=== PATIENT | male | born 1960 ===

== ENCOUNTER → 2025-01-26 | Outpatient (CLI) | payer OTHER | LOC: LAB 14:11 → LAB SHORT 14:11 | DX: E11.621 Type 2 diabetes mellitus with foot ulcer (principal); M85.9 Disorder of bone density and structure, unspecified | CPT/HCPCS: 87071; 87075; 87077; 87186; 87205 ==

== ENCOUNTER → 2025-01-26 | Outpatient (CLI) | payer OTHER | END | disposition home or self-care (01) | LOC: LAB 07:47 → LAB SHORT 07:47 | DX: E11.621 Type 2 diabetes mellitus with foot ulcer (principal); M86.9 Osteomyelitis, unspecified | CPT/HCPCS: 88304 ==

== ENCOUNTER → 2025-03-03 | Outpatient (CLI) | payer OTHER | LOC: LAB SHORT 13:45 → LAB 13:45 | DX: E11.65 Type 2 diabetes mellitus with hyperglycemia (principal) | CPT/HCPCS: 82043 ==

== ENCOUNTER 2025-03-16 02:39 | Day surgery (SDC) | payer OTHER | END 2025-03-16 23:00 | disposition home or self-care (01) | LOC: WOUND 02:39 | DX: E11.621 Type 2 diabetes mellitus with foot ulcer (principal); T25.221D Burn of second degree of right foot, subsequent encounter; E11.69 Type 2 diabetes mellitus with other specified complication; M86.9 Osteomyelitis, unspecified; L03.115 Cellulitis of right lower limb; E11.51 Type 2 diabetes mellitus with diabetic peripheral angiopathy without gangrene; I25.2 Old myocardial infarction; Z88.0 Allergy status to penicillin | CPT/HCPCS: G0463 ==

== ENCOUNTER 2025-04-02 06:42 | Day surgery (SDC) | payer OTHER ==
[~2025-04-02] VITALS: Ht 175.3 cm; Wt 79.5 kg
[2025-04-02] VITALS (7 sets, daily range): BP systolic 151–165; BP diastolic 82–99
[~2025-04-02 06:42] MED LIST: ATOR80; Aspir 8181 MG; Aspir 8181 MG PO; Calcium Carbon500 MG PO; FLONASE ALLERG9.9 M2; Flomax0.4 MG PO; LOPE2C PO; LOSA25 PO; METFORMIN ER G500 MG PO
[2025-04-02] MEDS ORDERED: NS 1,000 ML IV ONE ×2 (07:32→08:39)
[2025-04-02] MEDS ORDERED: Heparin Sodium 1000 Units/ML 10ML MDV ONE (07:32)
[2025-04-02] MEDS ORDERED: Nitroglycerin 2 MG/20 ML BTL ONE (07:32)
[2025-04-02] MEDS ORDERED: NS 500 ML IV ONE (07:32)
[2025-04-02] MEDS ORDERED: FentaNYL Citrate 50 MCG/ML 2 ML Injection ONE (08:55)
[2025-04-02] MEDS ORDERED: Midazolam HCl 1MG / ML 2ML Vial ONE (08:55)
[2025-04-02] MEDS ORDERED: CLOP75 PO (10:55)
--- NOTE | 2025-04-02 11:30 | NUR ---
PT AMB TO THE BATHROOM /C SBA. TOLERATED WELL. NEG BLEEDING OR SWELLING R GROIN AREA.
--- NOTE | 2025-04-02 11:35 | NUR ---
groin site soft and non-tender per pt. no bleeding/hematoma noted. pt sat to 30 degrees. pt given new warm blanket.
--- NOTE | 2025-04-02 11:41 | NUR ---
groin site soft and non-tender per pt. no bleeding/heamtoma noted.
--- NOTE | 2025-04-02 12:15 | NUR ---
PT VERBALIZED UNDERSTANDING OF WRITTEN AND VERBAL D/C INST. R GROIN SOFT, NONTENDER. IV REMOVED. PT TAKEN OUT OF THE HRT CENTER VIA W/C.
== END 2025-04-02 12:15 | disposition home or self-care (01) ==
LOC: MHTC 06:42
DX: E11.51 Type 2 diabetes mellitus with diabetic peripheral angiopathy without gangrene (principal); I70.221 Atherosclerosis of native arteries of extremities with rest pain, right leg; L97.519 Non-pressure chronic ulcer of other part of right foot with unspecified severity; K21.9 Gastro-esophageal reflux disease without esophagitis; E78.5 Hyperlipidemia, unspecified; I25.2 Old myocardial infarction; Z79.82 Long term (current) use of aspirin; Z79.84 Long term (current) use of oral hypoglycemic drugs; Z79.899 Other long term (current) drug therapy; Z88.0 Allergy status to penicillin; Z91.010 Allergy to peanuts; Z91.018 Allergy to other foods
CPT/HCPCS: 76937; 99152; 99153; C1725; C1760; C1769; C1887; C1894; C2623; J1644; J2250; J3010; J7030; J7050; Q9967

== ENCOUNTER 2025-06-23 09:22 | Inpatient (IN) | payer OTHER ==
[2025-06-23] VITALS (26 sets, daily range): BP systolic 79–115; BP diastolic 44–89
[~2025-06-23] VITALS: Ht 175.3 cm; Wt 98.7 kg
[~2025-06-23 09:22] MED LIST changes: +CLOP75 PO
[2025-06-23] MEDS ORDERED: NS 500 ML IV SCH (09:35)
[2025-06-23] MEDS ORDERED: Ketorolac Tromethamine 30mg Vial IV ONE (09:40)
[2025-06-23 09:50] LABS: Hematocrit 26.4 % (37.0-53.0); Hemoglobin 8.8 g/dL (13.5-17.5); Mean Corpuscular HGB Conc 33.3 g/dL (31.5-36.5); Mean Corpuscular Volume 89 fL (80-100); NRBC ABSOLUTE 0.00 K/mm3 (0.00-0.02); NRBC Auto 0.0 /100 WBC (0.0-0.2); Platelet Count 322 K/mm3 (150-400); RDW Coefficient Variation 13.8 % (11.7-14.2); RDW Standard Deviation 45.4 fL (35.1-46.3)
[2025-06-23 10:11] LABS: Alanine Aminotransfer (ALT/SGP 33 U/L (12-78); Albumin, Blood 3.0 g/dL (3.4-5.0); Albumin/Globulin Ratio 0.7 (0.8-1.8); Anion Gap 16 mmol/L (3-11); Aspartate Aminotrans (AST/SGOT 19 U/L (12-37); Bilirubin, Total 0.5 mg/dL (0.1-1.0); Blood Urea Nitrogen 46 mg/dL (8-24); C-REACTIVE PROTEIN, EXT RANGE >19.000 mg/dL (0.000-0.300); CO2, Blood 21 mmol/L (21-32); Calcium, Blood 8.6 mg/dL (8.5-10.1); Chloride, Blood 97 mmol/L (98-108); Creatinine, Blood 2.39 mg/dL (0.60-1.20); Globulin, Blood 4.3 g/dL (2.2-4.0); Glucose, Blood 301 mg/dL (70-99); Magnesium, Blood 1.5 mg/dL (1.6-2.4); Potassium, Blood 4.2 mmol/L (3.5-5.5); Sodium, Blood 130 mmol/L (136-145); Total Protein, Blood 7.3 g/dL (6.4-8.2)
[2025-06-23 10:17] LABS: BAND PERCENT MAN 12 % (0-8); BASOPHILS ABSOLUTE MAN 0.00 K/mm3 (0.00-0.23); BASOPHILS PERCENT MAN 0 % (0-2); EOSINOPHILS ABSOLUTE MAN 0.00 K/mm3 (0.00-0.68); EOSINOPHILS PERCENT MAN 0 % (0-6); LYMPHOCYTES ABSOLUTE MAN 0.39 K/mm3 (0.84-5.20); LYMPHOCYTES PERCENT MAN 3 % (21-46); METAMYELOCYTE ABSOLUTE MAN 0.26 K/mm3 (0.00-0.00); METAMYELOCYTE PERCENT MAN 2 % (0-0); MONOCYTES ABSOLUTE MAN 0.65 K/mm3 (0.16-1.47); MONOCYTES PERCENT MAN 5 % (4-13); NEUTROPHILS ABSOLUTE MAN 11.70 K/mm3 (1.96-9.15); SEG NEUTROPHILS PERCENT MAN 78 % (41-73)
[2025-06-23] MEDS ORDERED: CefTRIAXone Sodium 1,000 MG in NS 50 ML IV ONE ×2 (10:30→11:25)
[2025-06-23] MEDS ORDERED: NS 1,000 ML IV SCH ×2 (10:35→12:00)
[2025-06-23] MEDS ORDERED: Magnesium Sulf 2 GM/Water 50ML 50 ML IV ONE (10:55)
[2025-06-23] MEDS ORDERED: FLU VACC TS2025-26(6MOS UP)/PF 45 MCG/0.5 ML SYRINGE IM SCH (11:55)
[2025-06-23 12:25] LABS: Influenza A, PCR NEGATIVE (NEGATIVE); Influenza B, PCR NEGATIVE (NEGATIVE); Resp Syncytial Virus, PCR NEGATIVE (NEGATIVE); SARS-Cov-2 (COVID-19) PCR, MMC NEGATIVE (NEGATIVE)
[2025-06-23] MEDS ORDERED: PROBIOTIC1 EA13 PO (13:36)
[2025-06-23 13:40] LABS: Hematocrit 27.0 % (37.0-53.0); Hemoglobin 8.9 g/dL (13.5-17.5)
[2025-06-23] MEDS ORDERED: Vancomycin (Pharmacy Consult) IV PRN (13:55)
[2025-06-23] MEDS ORDERED: Heparin Sodium,Porcine 5,000 UNIT/0.5 ML SDV SC SCH (14:00)
[2025-06-23] MEDS ORDERED: Cefepime HCl 2,000 MG in NS 100 ML IV SCH (14:00)
[2025-06-23] MEDS ORDERED: Fluticasone 0.05% Nasal Spray PRN (14:30)
--- NOTE | 2025-06-23 15:43 | NUR ---
ASSUMED CARE OF PT FROM ER PATIENT ARRIVED TO ICU ON RLAREDO. PATIENT ALERT BUT DROWSY. PATIENT HAD SMALL DARK BROWN STOOL IN ATTENDS, CLEANED UP. PATIENT HAD LEVOPHED TO LEFT AC IV AND NS TO RIGHT AC IV. PATIENT HAS SCATTERED BRUISING TO RIGHT LEG, LEFT KNEE AND FOOT, RIGHT FA AND RIGHT WRIST. PT HAS SMALL OLD PRESSURE INJURY NON BLANCHABLE TO RIGHT HEEL. NEW MEPILEX PLACED ON IT. AND PICTURES DONE TO ALL OF SPOT. DR AMARAL WAS INFORMED IF THE SORES AND BRUSING AND SWOLLEN LE ON LEFT SIDE. DID DOPPLER TO BILAT LE AND HAVE GOOD DOPPLER PULSES TO BOTH LE POST TIBIAL AND DORSAL PEDIS. PATIENT IS ABLE TO INTERACT TO DO ASSESSMENT HOWEVER IS VERY DROWSY. ORDERD A PICC LINE. SOLAR PHOTOVOLTAIC INSTALLER'S TO ROOM TO DO LINE PLACEMENT. PT IS AFEBRILE. PATIENT VS BEING MONITORED AND TREATED TO ORDERS. ANTIBIOTICS GIVEN ORDERED. NO VOID OF YET.
[2025-06-23 15:46] LABS: Anion Gap 17.0 mmol/L (3-11); Blood Urea Nitrogen 45.0 mg/dL (8-24); CO2, Blood 15.0 mmol/L (21-32); Calcium, Blood 8.0 mg/dL (8.5-10.1); Chloride, Blood 104.0 mmol/L (98-108); Creatinine, Blood 2.53 mg/dL (0.60-1.20); Glucose, Blood 305.0 mg/dL (70-99); Potassium, Blood 4.6 mmol/L (3.5-5.5); Sodium, Blood 131.0 mmol/L (136-145); Thyroid Stimulating Hormone 1.23 uIU/mL (0.360-4.800)
[2025-06-23] MEDS ORDERED: NS 1,000 ML IV ONE (17:00)
[2025-06-23] MEDS ORDERED: Insulin Regular 100 UNIT/ML 10ML Vial SC SCH (18:00)
--- NOTE | 2025-06-23 18:09 | NUR ---
update updated dr mistry on patient condition. He remains on levophed at 5mcg going into picc line that was placed earlier. He has had 4 soft stools and a sample was sent to lab to check for C-diff. He is getting oral vanco now however with the sip of water after the med swallowed he started choking. Keeping him NPO. Patient has purwick placed on him, he has not voided yet, staff did bladder scan and it showed only 352 ml vol. in bladder. Dr. Mistry informed of lack of urine output. Patient was seen by Dr Ring. He stated there is a small plearal effusion. He orders a bolus of NS. Patient has currently had 4l of fluid. He is being switched to LR at 125 now.
[2025-06-23] MEDS ORDERED: Sodium Bicarb 8.4% 50 mEq Syringe IV ONE (18:31)
[2025-06-23] MEDS ORDERED: Insulin Glargine-Yfgn 100 Unit/mL 3 ML SYR SC SCH (19:00)
--- NOTE | 2025-06-23 19:18 | NUR ---
rEPORT GIVEN TO ON COMING SHIFT pATIENT HAD ANOTHER BOWEL MOVEMENT, LOOSE MUSHY BROWN. UNCONTROLLABLE. HE HELPED TURN SIDE TO SIDE. HE THINKS ITS SLOWING DOWN. LEVOPHED DOWN TO 4MCG LR AT 125/HR
[2025-06-24] VITALS (57 sets, daily range): BP systolic 86–132; BP diastolic 55–89
[2025-06-24 01:20] LABS: Campylobacter Sp Not Detected (NOT DETECT); E. Coli O157 Not Detected (NOT DETECT); Enteroaggregative E. coli-EAEC Not Detected (NOT DETECT); Enteropathogenic E. coli-EPEC Not Detected (NOT DETECT); Enterotoxigenic E. coli-ETEC Not Detected (NOT DETECT); Salmonella Sp Not Detected (NOT DETECT); Shiga Toxin-prod E. coli-STEC Not Detected (NOT DETECT); Shigella/Enteroin E. coli-EIEC Not Detected (NOT DETECT); Vibrio Sp Not Detected (NOT DETECT)
[2025-06-24 04:20] LABS: Hematocrit 27.8 % (37.0-53.0); Hemoglobin 9.4 g/dL (13.5-17.5); Mean Corpuscular HGB Conc 33.8 g/dL (31.5-36.5); Mean Corpuscular Volume 87 fL (80-100); NRBC ABSOLUTE 0.03 K/mm3 (0.00-0.02); NRBC Auto 0.2 /100 WBC (0.0-0.2); Platelet Count 357 K/mm3 (150-400); RDW Coefficient Variation 14.1 % (11.7-14.2); RDW Standard Deviation 45.6 fL (35.1-46.3)
[2025-06-24 04:53] LABS: BAND PERCENT MAN 21 % (0-8); BASOPHILS ABSOLUTE MAN 0.00 K/mm3 (0.00-0.23); BASOPHILS PERCENT MAN 0 % (0-2); EOSINOPHILS ABSOLUTE MAN 0.00 K/mm3 (0.00-0.68); EOSINOPHILS PERCENT MAN 0 % (0-6); LYMPHOCYTES ABSOLUTE MAN 0.97 K/mm3 (0.84-5.20); LYMPHOCYTES PERCENT MAN 6 % (21-46); MONOCYTES ABSOLUTE MAN 0.32 K/mm3 (0.16-1.47); MONOCYTES PERCENT MAN 2 % (4-13); MYELOCYTE ABSOLUTE MAN 0.16 K/mm3 (0.00-0.00); MYELOCYTE PERCENT MAN 1 % (0-0); NEUTROPHILS ABSOLUTE MAN 14.73 K/mm3 (1.96-9.15); SEG NEUTROPHILS PERCENT MAN 70 % (41-73)
[2025-06-24 05:14] LABS: Alanine Aminotransfer (ALT/SGP 2427 U/L (12-78); Albumin, Blood 2.0 g/dL (3.4-5.0); Albumin/Globulin Ratio 0.5 (0.8-1.8); Anion Gap 15 mmol/L (3-11); Aspartate Aminotrans (AST/SGOT 3525 U/L (12-37); Bilirubin, Total 0.5 mg/dL (0.1-1.0); Blood Urea Nitrogen 66 mg/dL (8-24); CO2, Blood 17 mmol/L (21-32); Calcium, Blood 7.6 mg/dL (8.5-10.1); Chloride, Blood 105 mmol/L (98-108); Creatinine, Blood 3.28 mg/dL (0.60-1.20); Globulin, Blood 4.2 g/dL (2.2-4.0); Glucose, Blood 220 mg/dL (70-99); Potassium, Blood 4.1 mmol/L (3.5-5.5); Sodium, Blood 133 mmol/L (136-145); Total Protein, Blood 6.2 g/dL (6.4-8.2); Vancomycin, Random 23.6 ug/mL
--- NOTE | 2025-06-24 05:56 | NUR ---
SHIFT SUMMARY PATIENT SLEPT OFF AND ON THROUGH SHIFT. PLACED A RECTAL TUBE AFTER 3X INCOT OF BM IN ATTENDS. PATIENT HANDLE INSERTION WELL AND WAS THANKFUL. PATIENT ASK FOR SOMETHING TO DRINK, NURSE GAVE WATER AND PATIENT DID NOT CHOKE WITH MEDS. PATIENT AFERIBLE AND A&O X4. HR IN THE 110'S AND SBP 110-120'S WITH MAP OF 60-80'S. PATIENT ON ROOMAIR SATTING ABOVE 95%. PATIENT HAS PUREWICK. PATIENT HAS PICC IN RIGHT UPPER ARM WITH LEVO RUNNING @4 AND LR INFUSING @125MLS. PATIENT HAS MULTIPLE WONDS THROUGH OUT BODY PICS IN CHART. PATIENT ASKS FOR WHEEL CHAIR SO HE COULD GO GET SOMETHING TO DRINK. NURSE REMINDS HIM THAT HE IS NPO AND NURSE WILL TALK TO DAYSHIFT TO SEE IF SWALLOW EVAL CAN BE DONE TO CHANGE NPO. CALL LIGHT WITHIN REACH
[2025-06-24] MEDS ORDERED: CefTRIAXone Sodium 1,000 MG in NS 100 ML IV SCH (09:00)
[2025-06-24 14:51] LABS: Anion Gap 13.0 mmol/L (3-11); Blood Urea Nitrogen 71.0 mg/dL (8-24); CO2, Blood 18.0 mmol/L (21-32); Calcium, Blood 7.4 mg/dL (8.5-10.1); Chloride, Blood 102.0 mmol/L (98-108); Creatinine, Blood 3.94 mg/dL (0.60-1.20); Glucose, Blood 275.0 mg/dL (70-99); Potassium, Blood 4.1 mmol/L (3.5-5.5); Sodium, Blood 129.0 mmol/L (136-145)
[2025-06-24] MEDS ORDERED: Insulin Human Lispro 100 Units/ML 3ML Syringe SC SCH ×2 (16:30)
[2025-06-24 18:37] LABS: Source, Urine Clean Catch
[2025-06-24 18:40] LABS: Bilirubin, Urine Neg (Neg); Glucose Qualitative, Urine 3+ (Neg); Ketones, Urine Neg (Neg); Leukocyte Esterase, Urine Neg (Neg); Protein, Urine 3+ (Neg); Specific Gravity, Urine 1.025 (1.003-1.022); Urobilinogen, Urine NORM (Normal)
[2025-06-24 18:45] LABS: Color, Urine Yellow (P-Yellow)
[2025-06-24 18:47] LABS: White Blood Cells, Urine 0-2 /hpf (0-5)
[2025-06-24 19:06] LABS: Anion Gap 15.0 mmol/L (3-11); Blood Urea Nitrogen 65.0 mg/dL (8-24); CO2, Blood 17.0 mmol/L (21-32); Calcium, Blood 7.5 mg/dL (8.5-10.1); Chloride, Blood 103.0 mmol/L (98-108); Creatinine, Blood 4.27 mg/dL (0.60-1.20); Glucose, Blood 236.0 mg/dL (70-99); Potassium, Blood 3.9 mmol/L (3.5-5.5); Sodium, Blood 131.0 mmol/L (136-145)
--- NOTE | 2025-06-24 20:46 | NUR ---
ASSUMED CARE AT 1900 PATIENT IS ALERT AND ORIENTED X4. PATIENT STATES SOME GENERAL DISCOMFORT AND WEAKNESS. MOVE ALL EXTREMITIES AND FOLLOWS COMMANDS. SP02 93% ON RA, DENIES SOB. HAS A DRY COUGH. HR ST 105. BP STABLE AT THIS TIME. DENIES CP PRESSURE. DOPPLER PULSES IN BOTH FEET, LOWER EXTREMITIES SWOLLEN, LLE WITH SLIGHTLY MORE EDEMA THEN RLE. RECTAL TUBE IN PLACE DRAINING LIQUID BROWN STOOLS. PATIENT STATES HE DOES NOT NEED TO URINATE AT THIS TIME, WILL BLADDER SCAN LATER IF NO OUTPUT. PATIENT ABLE TO REPOSITION SELF. CALL LIGHT IN REACH
[2025-06-24] MEDS ORDERED: Banana Flakes/Tos 1 EA Powder Pack PO SCH (21:00)
[2025-06-25] VITALS (46 sets, daily range): BP systolic 94–131; BP diastolic 60–87
[2025-06-25] MEDS ORDERED: Cefepime HCl 2,000 MG in NS 100 ML IV SCH (02:00)
[2025-06-25] MEDS ORDERED: NS 250 ML IV PRN (02:15)
[2025-06-25 03:32] LABS: Hematocrit 25.9 % (37.0-53.0); Hemoglobin 8.9 g/dL (13.5-17.5); Mean Corpuscular HGB Conc 34.4 g/dL (31.5-36.5); Mean Corpuscular Volume 87 fL (80-100); NRBC ABSOLUTE 0.07 K/mm3 (0.00-0.02); NRBC Auto 0.4 /100 WBC (0.0-0.2); Platelet Count 293 K/mm3 (150-400); RDW Coefficient Variation 14.2 % (11.7-14.2); RDW Standard Deviation 45.3 fL (35.1-46.3)
[2025-06-25 03:52] LABS: BAND PERCENT MAN 4 % (0-8); BASOPHILS ABSOLUTE MAN 0.00 K/mm3 (0.00-0.23); BASOPHILS PERCENT MAN 0 % (0-2); EOSINOPHILS ABSOLUTE MAN 0.00 K/mm3 (0.00-0.68); EOSINOPHILS PERCENT MAN 0 % (0-6); LYMPHOCYTES ABSOLUTE MAN 0.83 K/mm3 (0.84-5.20); LYMPHOCYTES PERCENT MAN 5 % (21-46); MONOCYTES ABSOLUTE MAN 0.99 K/mm3 (0.16-1.47); MONOCYTES PERCENT MAN 6 % (4-13); MYELOCYTE ABSOLUTE MAN 0.16 K/mm3 (0.00-0.00); MYELOCYTE PERCENT MAN 1 % (0-0); NEUTROPHILS ABSOLUTE MAN 14.64 K/mm3 (1.96-9.15); SEG NEUTROPHILS PERCENT MAN 84 % (41-73)
[2025-06-25 04:05] LABS: Alanine Aminotransfer (ALT/SGP 1822.0 U/L (12-78); Albumin, Blood 1.9 g/dL (3.4-5.0); Albumin/Globulin Ratio 0.5 (0.8-1.8); Anion Gap 16.0 mmol/L (3-11); Aspartate Aminotrans (AST/SGOT 1160.0 U/L (12-37); Bilirubin, Total 0.4 mg/dL (0.1-1.0); Blood Urea Nitrogen 86.0 mg/dL (8-24); CO2, Blood 16.0 mmol/L (21-32); Calcium, Blood 7.4 mg/dL (8.5-10.1); Chloride, Blood 102.0 mmol/L (98-108); Creatinine, Blood 4.49 mg/dL (0.60-1.20); Globulin, Blood 4.0 g/dL (2.2-4.0); Glucose, Blood 219.0 mg/dL (70-99); Potassium, Blood 3.8 mmol/L (3.5-5.5); Sodium, Blood 130.0 mmol/L (136-145); Total Protein, Blood 5.9 g/dL (6.4-8.2)
--- NOTE | 2025-06-25 05:55 | NUR ---
SHIFT SUMMARY PATIENT ALERT AND ORIENTED THROUGH THE NIGHT. STATES SOME WEAKNESS AND DISCOMFORT STILL BUT MANAGEABLE. HR SR 90s, BP STABLE THROUGH THE NIGHT. DENIES CP/PRESSURE. SP02 WHEN AWAKE >93% ON RA, PATIENT APPEARS TO HAVE SLEEP APNEA AND HIS SP02 WILL DROP TO THE LOW 80s FOR BRIEF PERIODS OF TIME. PLACED ON 2L VIA NC WHILE ASLEEP. PATIENT UNABLE TO VOID, BLADDE SCAN DONE AND 155 MLS, WILL CONTINUE TO MONITOR. RECTAL TUBE WITH 200 MLS LIQUID BROWN OUTPUT. ASSISTANCE WITH REPOSITIONING NEEDED. CALL LIGHT IN REACH
--- NOTE | 2025-06-25 07:24 | NUR ---
ASSUMED CARE OF PATIENT AT APPROXIMATELY 0700. REPORT RECEIVED FROM SHELIA MARKS. PT AWAKE, INTERACTING c STAFF APPROPRIATELY DURING BEDSIDE REPORT. CONTINUOUS CARDIAC MONITORING IN PLACE, BP STABLE. ON 2LPM O2 VIA NC. RECTAL TUBE DRAINING TO GRAVITY. LR INFUSING AT 100 mL/HR. SEE SHIFT ASSESSMENT FOR FULL DETAILS.
[2025-06-25] MEDS ORDERED: Insulin Human Lispro 100 Units/ML 3ML Syringe SC SCH (08:30)
[2025-06-25] MEDS ORDERED: Sodium Bicarb 8.4% Inj 100 MEQ in Sodium Chloride 0.45% 1,000 ML IV SCH ×2 (09:00→16:00)
[2025-06-25] MEDS ORDERED: Colchicine 0.6 MG TAB PO SCH (09:00)
[2025-06-25 15:03] LABS: Alanine Aminotransfer (ALT/SGP 1572.0 U/L (12-78); Albumin, Blood 2.1 g/dL (3.4-5.0); Albumin/Globulin Ratio 0.5 (0.8-1.8); Anion Gap 15.0 mmol/L (3-11); Aspartate Aminotrans (AST/SGOT 772.0 U/L (12-37); Bilirubin, Total 0.4 mg/dL (0.1-1.0); Blood Urea Nitrogen 89.0 mg/dL (8-24); CO2, Blood 17.0 mmol/L (21-32); Calcium, Blood 7.6 mg/dL (8.5-10.1); Chloride, Blood 103.0 mmol/L (98-108); Creatinine, Blood 4.91 mg/dL (0.60-1.20); Globulin, Blood 3.9 g/dL (2.2-4.0); Glucose, Blood 145.0 mg/dL (70-99); Potassium, Blood 3.6 mmol/L (3.5-5.5); Sodium, Blood 131.0 mmol/L (136-145); Total Protein, Blood 6.0 g/dL (6.4-8.2)
[2025-06-25] MEDS ORDERED: Darbepoetin (Pharmacy Consult) SC SCH (15:35)
--- NOTE | 2025-06-25 16:59 | NUR ---
SHIFT SUMMARY PT REMAINED ALERT AND ORIENTED X 4 T/O ENTIRETY OF SHIFT. ABLE TO FOLLOW COMMANDS, MAKE PURPOSEFUL MOVEMENTS, AND MAKE NEEDS KNOWN. AFEBRILE AND DENIES PAIN. CONTINUOUS CARDIAC MONITORING IN PLACE SHOWS SR-ST, BP STABLE. ON 2LPM O2 VIA NC c O2 SATURATIONS > 92%. FLUTTER VALVE AND INCENTIVE SPIROMETER AT BEDSIDE, SPUTUM CULTURE NEEDED. TOLERATING PO INTAKE/FLUIDS/MEDS WELL c ST ORDERS IN PLACE. NO URINE OUT THIS SHIFT, SEE BLADDER SCANS. RECTAL TUBE REPLACED THIS SHIFT AFTER PREVIOUS TUBE BECAME DISLODGED, LIQUID STOOL DRAINING TO GRAVITY, STOOL PANEL PENDING. BICARB INFUSING AT 100 mL/HR. WILL CONTINUE TO MONITOR AND REPORT TO ONCOMING RN.
--- NOTE | 2025-06-25 18:22 | NUR ---
6 BEAT RUN OF VTACH AT THIS TIME CK AWARE
--- NOTE | 2025-06-25 19:02 | NUR ---
PT TO MIXING AND DISPENSING SUPERVISOR FOR TVP UPON START OF MY SHIFT. DR EDWARDS AT BEDSIDE. WILL ASSESS ON RETURN TO ICU.
[2025-06-25] MEDS ORDERED: Darbepoetin Alfa In Albumn Sol 40 MCG/0.4 ML SC SCH (20:00)
[2025-06-25] MEDS ORDERED: Insulin Glargine-Yfgn 100 Unit/mL 3 ML SYR SC SCH (21:00)
[2025-06-26] VITALS (39 sets, daily range): BP systolic 72–124; BP diastolic 53–90
[2025-06-26 05:22] LABS: BASOPHILS ABSOLUTE AUTO 0.05 K/mm3 (0.00-0.23); BASOPHILS PERCENT AUTO 0 % (0-2); EOSINOPHILS ABSOLUTE AUTO 0.15 K/mm3 (0.00-0.68); EOSINOPHILS PERCENT AUTO 1 % (0-6); Hematocrit 26.2 % (37.0-53.0); Hemoglobin 9.2 g/dL (13.5-17.5); IMMATURE GRAN ABSOLUTE AUTO 0.25 K/mm3 (0.00-0.10); IMMATURE GRAN PERCENT AUTO 2 % (0-1); LYMPHOCYTES ABSOLUTE AUTO 0.66 K/mm3 (0.84-5.20); LYMPHOCYTES PERCENT AUTO 4 % (21-46); MONOCYTES ABSOLUTE AUTO 0.87 K/mm3 (0.16-1.47); MONOCYTES PERCENT AUTO 5 % (4-13); Mean Corpuscular HGB Conc 35.1 g/dL (31.5-36.5); Mean Corpuscular Volume 85 fL (80-100); NEUTROPHILS ABSOLUTE AUTO 14.79 K/mm3 (1.96-9.15); NEUTROPHILS PERCENT AUTO 88 % (41-73); NRBC ABSOLUTE 0.03 K/mm3 (0.00-0.02); NRBC Auto 0.2 /100 WBC (0.0-0.2); Platelet Count 281 K/mm3 (150-400); RDW Coefficient Variation 14.4 % (11.7-14.2); RDW Standard Deviation 44.5 fL (35.1-46.3)
--- NOTE | 2025-06-26 05:41 | NUR ---
SHIFT SUMMERY PT HAS BEEN ALERT AND ORIENTED X 4. HE HAS BEEN SR/ST ON THE LONGWALL FOREMAN. BP WNL. AFEBRILE. ACT CATHETER AND RECTAL TUBE INTACT PATENT AND DRAINING TO GRAVITY. PT OXYGEN SAT HAS BEEN >92% ON 2L NC. NO ACUTE CHANGES OVERNIGHT.
[2025-06-26 05:44] LABS: Albumin, Blood 2.0 g/dL (3.4-5.0); Anion Gap 15 mmol/L (3-11); Blood Urea Nitrogen 98 mg/dL (8-24); CO2, Blood 18 mmol/L (21-32); Calcium, Blood 7.6 mg/dL (8.5-10.1); Chloride, Blood 105 mmol/L (98-108); Creatinine, Blood 5.31 mg/dL (0.60-1.20); Glucose, Blood 126 mg/dL (70-99); Magnesium, Blood 2.3 mg/dL (1.6-2.4); PSA, %Free 25.7 %; PSA, Free 0.073 ng/mL; Phosphorus, Blood 5.8 mg/dL (2.5-4.9); Potassium, Blood 3.8 mmol/L (3.5-5.5); Prostate Specific Antigen 0.284 ng/mL (0.000-4.000); Sodium, Blood 134 mmol/L (136-145)
--- NOTE | 2025-06-26 05:55 | NUR ---
LABS CALLED TO DR EDWARDS. ORDERS GIVEN
[2025-06-26] MEDS ORDERED: Sodium Bicarb 8.4% Inj 100 MEQ in Sodium Chloride 0.45% 1,000 ML IV SCH ×2 (07:30→08:00)
[2025-06-26] MEDS ORDERED: Bumetanide 0.25 MG/ML 10ML Vial IV SCH (09:00)
--- NOTE | 2025-06-26 09:56 | NUR ---
UPDATE: PT CONVERTED TO AFIB RVR AT APPROX 0800. MADE AWARE. NEW ORDERS RECEIVED SEE EMAR. PT REMAINS AFIB RATE 130'S-140'S.
[2025-06-26] MEDS ORDERED: Metoprolol Tartrate 1 MG/ML 5 ML VIAL IV ONE (10:00)
[2025-06-26] MEDS ORDERED: NS 250 ML IV ONE (10:20)
[2025-06-26] MEDS ORDERED: Metoprolol Tartrate 1 MG/ML 5 ML VIAL IV PRN (10:45)
[2025-06-26] MEDS ORDERED: NS 1,000 ML IV ONE (13:00)
[2025-06-26 13:55] LABS: Anti-Xa UFH, PHA Monitoring <0.10 IU/mL; Prothrombin Time Results 15.1 Sec (9.7-11.5)
[2025-06-26] MEDS ORDERED: Heparin Sodium,Porcine/0.5 NS 500 ML IV SCH (14:10)
[2025-06-26] MEDS ORDERED: Amiodarone HCl 450 MG in NS 250 ML IV SCH ×2 (14:40→19:30)
--- NOTE | 2025-06-26 15:12 | NUR ---
UPDATE: PT REMAINS AFIB 130-140S, MAP OF 69. MD MADE AWARE, ADVISED TO START AMIODARONE IF MAP IS >65. OTHERWISE, NO NEW ORDERS AT THIS TIME. PT DENIES ANY CHEST PAIN/PRESSURE.
--- NOTE | 2025-06-26 17:32 | NUR ---
SHIFT SUMMARY: PT A/O X4, ABLE TO MAKE NEEDS KNOWN. GENERALIZED WEAKNESS THROUGHOUT, STRENGTH EQUAL BILATERALLY. REPOSITIONED PT THROUGHOUT SHIFT. PROVIDED BEDBATH AND LINEN CHANGE THIS EVENING. PT HAD A TOTAL OUTPUT OF 300 FROM CAT, UNMEASURED VOID FROM RECTAL TUBE DUE TO LEAK. FECAL REMAINS LOOSE AND BROWN. POOR PO INTAKE THIS SHIFT. PT AFIB RVR 130-150s FOR MAJORITY OF SHIFT. MD AWARE. DENIES CHEST PAIN/PRESSURE. GAVE PT METOPROLOL PER EMAR, NO OTHER NEW ORDERS AT THIS TIME. LAST BP WAS 83/61, MAP HAS REMAINED >65. ORDERED TO START AMIODARONE IF MAP IS <65. HEPARIN GTT. PT ON 2L O2 NC, DENIES SOB. AFEBRILE, OTHER VSS. PT LYING IN BED, CALL WITHIN REACH. WILL REPORT TO ONCOMING RN.
[2025-06-26 17:36] LABS: Alanine Aminotransfer (ALT/SGP 1274.0 U/L (12-78); Albumin, Blood 1.9 g/dL (3.4-5.0); Albumin/Globulin Ratio 0.5 (0.8-1.8); Anion Gap 13.0 mmol/L (3-11); Aspartate Aminotrans (AST/SGOT 795.0 U/L (12-37); Bilirubin, Total 0.5 mg/dL (0.1-1.0); Blood Urea Nitrogen 95.0 mg/dL (8-24); CO2, Blood 22.0 mmol/L (21-32); Calcium, Blood 6.8 mg/dL (8.5-10.1); Chloride, Blood 101.0 mmol/L (98-108); Creatinine, Blood 4.77 mg/dL (0.60-1.20); Globulin, Blood 3.7 g/dL (2.2-4.0); Glucose, Blood 131.0 mg/dL (70-99); Potassium, Blood 3.3 mmol/L (3.5-5.5); Sodium, Blood 133.0 mmol/L (136-145); Total Protein, Blood 5.6 g/dL (6.4-8.2)
[2025-06-26] MEDS ORDERED: CefTRIAXone Sodium 2,000 MG in NS 100 ML IV SCH (18:00)
[2025-06-26] MEDS ORDERED: Amiodarone HCl 150 MG in NS 100 ML IV ONE (19:30)
--- NOTE | 2025-06-26 21:00 | NUR ---
ASSUMED CARE. pT ALERT AND ORIENTED. 0 C/O PAIN OR SOB.PT SNORING AND O2 AT 2 LITERS STARTED AND SAT PROBE CHANGED AND SATURATION IS 94%. DELCID DRIP INFUSING AT 1 AND HEART RATE DECREASED FROM AFIB 140'S TO AFIB 105-110. MAP IN THE 55-[address] Prasad NOTIFIED. NO NEW ORDERS. PT STATES DIFFICULY IN TURNING PER SELF AND SWALLOWING. PT WILL BE NPO AT MIDNIGHT.
--- NOTE | 2025-06-26 21:30 | NUR ---
MAP 58. DR. CORONA ARROYO NOTIFED AND LEVOPHED DRIP ORDERED. AT BEDSIDE. PT CHANGED TO ICU STATUS.
--- NOTE | 2025-06-26 21:49 | NUR ---
DR. ROQUE NOTIED OF MAP 60 AND 79/54. AFIB 105-110. NO NEW ORDERS. REQUEST HOSPITALIST BE NOTIFED.
[2025-06-27] VITALS (92 sets, daily range): BP systolic 74–120; BP diastolic 52–101
[2025-06-27 03:14] LABS: Hematocrit 28.3 % (37.0-53.0); Hemoglobin 10.2 g/dL (13.5-17.5); Mean Corpuscular HGB Conc 36.0 g/dL (31.5-36.5); Mean Corpuscular Volume 83 fL (80-100); NRBC ABSOLUTE 0.24 K/mm3 (0.00-0.02); NRBC Auto 0.8 /100 WBC (0.0-0.2); Platelet Count 396 K/mm3 (150-400); RDW Coefficient Variation 14.4 % (11.7-14.2); RDW Standard Deviation 43.6 fL (35.1-46.3)
[2025-06-27 03:32] LABS: BAND PERCENT MAN 10 % (0-8); BASOPHILS ABSOLUTE MAN 0.00 K/mm3 (0.00-0.23); BASOPHILS PERCENT MAN 0 % (0-2); EOSINOPHILS ABSOLUTE MAN 0.00 K/mm3 (0.00-0.68); EOSINOPHILS PERCENT MAN 0 % (0-6); LYMPHOCYTES ABSOLUTE MAN 0.30 K/mm3 (0.84-5.20); LYMPHOCYTES PERCENT MAN 1 % (21-46); MONOCYTES ABSOLUTE MAN 1.85 K/mm3 (0.16-1.47); MONOCYTES PERCENT MAN 6 % (4-13); MYELOCYTE ABSOLUTE MAN 0.61 K/mm3 (0.00-0.00); MYELOCYTE PERCENT MAN 2 % (0-0); NEUTROPHILS ABSOLUTE MAN 28.13 K/mm3 (1.96-9.15); SEG NEUTROPHILS PERCENT MAN 81 % (41-73)
[2025-06-27 03:57] LABS: Magnesium, Blood 2.3 mg/dL (1.6-2.4)
[2025-06-27] MEDS ORDERED: Dose Adjust by Pharmacy XX STA ×3 (04:24→16:35)
[2025-06-27] MEDS ORDERED: Heparin Sodium 5000 Units/ML 1ML MDV IV ONE (04:25)
[2025-06-27 04:31] LABS: Albumin, Blood 2.0 g/dL (3.4-5.0); Albumin/Globulin Ratio 0.5 (0.8-1.8); Anion Gap 19.0 mmol/L (3-11); Bilirubin, Direct 0.4 mg/dL (0.0-0.3); Bilirubin, Indirect 0.4 mg/dL (0.1-0.7); Bilirubin, Total 0.8 mg/dL (0.1-1.0); Blood Urea Nitrogen 104.0 mg/dL (8-24); CO2, Blood 17.0 mmol/L (21-32); Calcium, Blood 7.5 mg/dL (8.5-10.1); Chloride, Blood 103.0 mmol/L (98-108); Creatinine, Blood 5.56 mg/dL (0.60-1.20); Globulin, Blood 4.0 g/dL (2.2-4.0); Glucose, Blood 90.0 mg/dL (70-99); Potassium, Blood 4.2 mmol/L (3.5-5.5); Sodium, Blood 135.0 mmol/L (136-145); Total Protein, Blood 6.0 g/dL (6.4-8.2)
[2025-06-27 04:32] LABS: Phosphorus, Blood 8.1 mg/dL (2.5-4.9)
--- NOTE | 2025-06-27 04:41 | NUR ---
LFT INCREASED. AMIO DRIP STOPPED. HEPARIN BOLUS GIVEN AND HEPARIN DRIP INCREASED TO 17.
[2025-06-27] MEDS ORDERED: Sodium Bicarb 8.4% Inj 100 MEQ in Sodium Chloride 0.45% 1,000 ML IV SCH ×2 (05:25→23:00)
--- NOTE | 2025-06-27 05:42 | NUR ---
dR. Duran NOTIFED POTASSIUM 4.2, CREATINE INCREASED TO 5.56 AND PHOSPEROUS 8.1. SODIUM BICARB INCREASED TO 100CC/HR.
--- NOTE | 2025-06-27 06:20 | NUR ---
END OF SHIFT. PT IS NPO FOR ABD ULTRASOUND THIS AM. PT ALERT AND ORIENTED. AMIADARONE STOPPED D/T RISE IN LFT. DR. EDWARDS NOTIFED OF LABS AND SODIUM BICARB INCREASED TO 100CC/HR. LEVOPHED WAS STARTED TO KEEP MAP AT 65 OR GREATER. LEVOPHED AT 4 HEPARIN IN INCREASED TO 17 UNITS/HR. HEPARIN 2200 UNITS GIVEN. 0 OUTPUT IN FECAL MANAGEMENT SYSTEM. PT REMAIN IN AFIB 80'S. WHEN SLEEPING O2 SATURATION IS 84 ON ROOM AIR. NC AT 2 LITERS STARTED AND O2 SAT 85%. 0 C/O PAIN. PT VERY WEAK AND UNABLE TO TURN SELF.
[2025-06-27] MEDS ORDERED: Calcium Acetate 667 MG Gel Cap PO SCH (08:30)
[2025-06-27] MEDS ORDERED: Bumetanide 0.25 MG/ML 10ML Vial IV SCH (09:00)
[2025-06-27] MEDS ORDERED: Albumin (Human) 12.5gm/250ml 250 ML IV SCH (09:00)
[2025-06-27 15:15] LABS: Alanine Aminotransfer (ALT/SGP 6971 U/L (12-78); Albumin, Blood 2.1 g/dL (3.4-5.0); Albumin/Globulin Ratio 0.6 (0.8-1.8); Anion Gap 19 mmol/L (3-11); Aspartate Aminotrans (AST/SGOT 12418 U/L (12-37); Bilirubin, Direct 0.6 mg/dL (0.0-0.3); Bilirubin, Indirect 0.4 mg/dL (0.1-0.7); Bilirubin, Total 1.0 mg/dL (0.1-1.0); Blood Urea Nitrogen 114 mg/dL (8-24); CO2, Blood 17 mmol/L (21-32); Calcium, Blood 7.2 mg/dL (8.5-10.1); Chloride, Blood 102 mmol/L (98-108); Creatinine, Blood 5.88 mg/dL (0.60-1.20); Globulin, Blood 3.5 g/dL (2.2-4.0); Glucose, Blood 186 mg/dL (70-99); Phosphorus, Blood 8.5 mg/dL (2.5-4.9); Potassium, Blood 3.8 mmol/L (3.5-5.5); Sodium, Blood 134 mmol/L (136-145); Total Protein, Blood 5.6 g/dL (6.4-8.2)
[2025-06-27] MEDS ORDERED: Ondansetron HCl 2 MG / ML 2ML Vial IV PRN (16:15)
--- NOTE | 2025-06-27 18:00 | NUR ---
SHIFT SUMMARY NO ACUTE CHANGES THIS SHIFT. PT HAS REMAINED ALERT AND ORIENTED WHEN AWAKE. PT RESTING QUIETLY OFF AND ON THIS AFTERNOON. PT HAS DENIED PAIN OR DISCOMFORT. PT ABLE TO MAKE NEEDS KNOWN AND IS ABLE TO TURN SELF IN BED FOR COMFORT. VITAL SIGNS REMAINED STABLE. PT CONVERTED FROM AFIB 80'S THIS MORNING TO NSR 60'S AND HAS REMAINED NSR THIS SHIFT. LEVOPHED TITRATED OFF THIS AFTERNOON. PICC TO JESUS REMAINS C/D/I. BICARB GTT INFUSING AT 100 ML/HR AND HEPARIN GTT AT 17 UNIT/KG/HR. PT ABLE TO TAKE PO INTAKE, BUT WITH POOR APPETITE. CAT REMAINS IN PLACE WITH SCANT DARK YELLOW URINE OUTPUT NOTED. RECTAL TUBE REPLACED THIS SHIFT. LIQUID BROWN STOOL OUTPUT CONTINUES. NO FAMILY AT BEDSIDE. WILL CONTINUE TO MONITOR AND REPORT OFF TO ONCOMING RN.
--- NOTE | 2025-06-27 19:15 | NUR ---
assumed care. pt alert and oriented to person, , and situation. pt is afib, rate 70-80. sbp 94/55. map 68. sat 92% on 2liters nc. 0 c/o pain or n/v. pt c/o soreness in throat when eating and generalized weakness. picc and piv patent. rectal tube and f/c patent. pt on heparin drip at 17 units and sodium bicarb at 100cc/hr.
[2025-06-28] VITALS (70 sets, daily range): BP systolic 71–128; BP diastolic 42–99
[2025-06-28 03:13] LABS: Hematocrit 26.9 % (37.0-53.0); Hemoglobin 9.5 g/dL (13.5-17.5); Mean Corpuscular HGB Conc 35.3 g/dL (31.5-36.5); Mean Corpuscular Volume 83 fL (80-100); NRBC ABSOLUTE 0.15 K/mm3 (0.00-0.02); NRBC Auto 0.5 /100 WBC (0.0-0.2); Platelet Count 351 K/mm3 (150-400); RDW Coefficient Variation 14.2 % (11.7-14.2); RDW Standard Deviation 42.5 fL (35.1-46.3)
[2025-06-28 03:50] LABS: BAND PERCENT MAN 2 % (0-8); BASOPHILS ABSOLUTE MAN 0.00 K/mm3 (0.00-0.23); BASOPHILS PERCENT MAN 0 % (0-2); EOSINOPHILS ABSOLUTE MAN 0.00 K/mm3 (0.00-0.68); EOSINOPHILS PERCENT MAN 0 % (0-6); LYMPHOCYTES ABSOLUTE MAN 0.28 K/mm3 (0.84-5.20); LYMPHOCYTES PERCENT MAN 1 % (21-46); METAMYELOCYTE ABSOLUTE MAN 0.57 K/mm3 (0.00-0.00); METAMYELOCYTE PERCENT MAN 2 % (0-0); MONOCYTES ABSOLUTE MAN 0.86 K/mm3 (0.16-1.47); MONOCYTES PERCENT MAN 3 % (4-13); MYELOCYTE ABSOLUTE MAN 0.57 K/mm3 (0.00-0.00); MYELOCYTE PERCENT MAN 2 % (0-0); NEUTROPHILS ABSOLUTE MAN 26.54 K/mm3 (1.96-9.15); SEG NEUTROPHILS PERCENT MAN 90 % (41-73)
[2025-06-28 03:56] LABS: Albumin, Blood 2.1 g/dL (3.4-5.0); Albumin/Globulin Ratio 0.6 (0.8-1.8); Anion Gap 16.0 mmol/L (3-11); Bilirubin, Direct 0.4 mg/dL (0.0-0.3); Bilirubin, Indirect 0.4 mg/dL (0.1-0.7); Bilirubin, Total 0.8 mg/dL (0.1-1.0); Blood Urea Nitrogen 121.0 mg/dL (8-24); CO2, Blood 20.0 mmol/L (21-32); Calcium, Blood 6.9 mg/dL (8.5-10.1); Chloride, Blood 101.0 mmol/L (98-108); Creatinine, Blood 5.76 mg/dL (0.60-1.20); Globulin, Blood 3.5 g/dL (2.2-4.0); Glucose, Blood 155.0 mg/dL (70-99); Potassium, Blood 3.8 mmol/L (3.5-5.5); Sodium, Blood 133.0 mmol/L (136-145); Total Protein, Blood 5.6 g/dL (6.4-8.2)
[2025-06-28 03:57] LABS: Phosphorus, Blood 8.2 mg/dL (2.5-4.9)
--- NOTE | 2025-06-28 04:30 | NUR ---
DR. EDWARDS NOTIFED OF PHOSPHEROUS 8.2 AND LIVER LABS. NEW ORDERS. FOR ALBUMIN AND BUMEX. FLUIDS DECREASED TO 50CC.
[2025-06-28] MEDS ORDERED: Clarify Drug Order XX ONE (05:25)
--- NOTE | 2025-06-28 06:21 | NUR ---
PT ALERT AMD ORIENTED. TALKS IN A SIFT VOICE. WHEN ASKED WHY HE WAS HERE, HE STATED "I'M DYING". EXPLAINED TO HIM HE'S IMPROVING AND PT STATED RELIEF. PT THEN STARTED MOVING MORE IN BED AND ADJUSTING BED CONTROLS. PT DRAK APPLE JUICE AND CRANBERRY JUICE. AFIB 70-80 WITH ONE EPISODE OF AFIB 120 FOR 30 SECONDS ON SITTING UP IN BED. BP HAS MAINTAINED WITH SBP 98-110. MAP > 65. FECAL MANAGEMENT DEVICE IN PLACE. F/C DRAINING 5CC OF URINE HOURLY AND DR. EDWARDS NOTIFED. NEW ORDER FOR ALBUMIN AND BUMEX THIS MORNING.DR. EDWARDS UPDATED WITH AM LABS.
[2025-06-28] MEDS ORDERED: Albumin (Human) 12.5gm/250ml 250 ML IV ONE (08:00)
[2025-06-28] MEDS ORDERED: Bumetanide 0.25 MG/ML 10ML Vial IV ONE (09:00)
[2025-06-28] MEDS ORDERED: Bumetanide 0.25 MG/ML 10ML Vial IV SCH (09:00)
[2025-06-28] MEDS ORDERED: Octreotide Acetate 500 MCG in NS 250 ML IV SCH (11:30)
[2025-06-28] MEDS ORDERED: Albumin (Human) 25gm/100ml 100 ML IV SCH (13:05)
[2025-06-28] MEDS ORDERED: Lactulose 200 GM/300 ML Enema 300ML BTL PR ONE (15:30)
[2025-06-28 16:14] LABS: Albumin, Blood 2.8 g/dL (3.4-5.0); Anion Gap 20 mmol/L (3-11); Blood Urea Nitrogen 129 mg/dL (8-24); CO2, Blood 18 mmol/L (21-32); Calcium, Blood 6.1 mg/dL (8.5-10.1); Chloride, Blood 99 mmol/L (98-108); Creatinine, Blood 6.49 mg/dL (0.60-1.20); Glucose, Blood 132 mg/dL (70-99); Phosphorus, Blood 8.0 mg/dL (2.5-4.9); Potassium, Blood 4.0 mmol/L (3.5-5.5); Sodium, Blood 133 mmol/L (136-145)
--- NOTE | 2025-06-28 19:15 | NUR ---
N: PTS LOC HAS DECREASED THROUGHOUT THE DAY. HE HAS BEEN UNABLE TO ANSWER LOC QUESTIONS APPROPRIATELY. ONLY VERBALIZING HIS NAME AND "HALLOWEEN" WHICH IS HIS BIRTHDAY. MD WAS NOTIFIED ABOUT THE DECREASED LOC AND CONCERNS OF COGNITION. AMMONIA LEVEL WAS ORDERED WHICH WAS 72. LACTULOSE ENEMA WAS GIVEN WITH SLIGHT IMPROVEMENTS ON LEVEL OF CONSCIOUSNESS. CV: PT IN AND OUT OF AFIB WITH RATES CONTROLLED UNDER 120. RATES REMAINED 60-100 THROUGHOUT SHIFT. UPON ARRIVAL ON SHIFT PT WAS IN 110S HRS, SCHEDULED METOPROLOL WAS GIVEN WITH IMPROVEMENT. PT DID JOSEF TO THE 40S ONE SINGLE TIME DURING AFTERNOON. PTS EDEMA IN BLE +4 WITH PAIN TO THE TOUCH. R: PT ON 2L NC REMAINING >95 G/G: PT WITHOUT APPETITE OR DESIRE TO EAT. DURING THE END OF SHIFT PT WAS GIVEN PILLS IN APPLESAUCE AND VOMITED. PT MADE NPO AND MD AWARE. RECTAL TUBE WAS TAKEN OUT NO OUTPUT WAS RECORDED. CAT REMAINS IN PLACE WITH VERY MINIMAL/ANURIC OUTPUT. MD AWARE AND WILL PLACE LINE FOR HD.
--- NOTE | 2025-06-28 19:53 | NUR ---
ASSUMED CARE OF PATIENT AT APPROXIMATELY 1900. REPORT RECEIVED FROM SHELIA DIXON. PT ASLEEP AT TIME OF BEDSIDE REPORT. CONTINUOUS CARDIAC MONITORING IN PLACE. ON 2LPM O2 VIA NC. CAT PATENT. PICC TO JESUS INFUSING OCTREOTIDE AND SODIUM BICARB. SEE SHIFT ASSESSMENT FOR FULL DETAILS.
--- NOTE | 2025-06-28 22:38 | NUR ---
owner/operator called in by nursing house furnishings supervisor for new trialysis catheter placed at approx 2145pm. Machine prepped and Dr Solares notified by this RN. Per Dr. Solares dialysis not needed stat. Treatment to be done 06/29/25 am.
--- NOTE | 2025-06-28 23:30 | NUR ---
ASSUMPTION OF CARE RECEIVED REPORT FROM SHELIA FISCHER. PT RESTING WITH EYES CLOSED, NO NEEDS NOTED AT THIS TIME. SEE SHIFT ASSESSMENT FOR FURTHER INFORMATION.
--- NOTE | 2025-06-28 23:31 | NUR ---
REPORT GIVEN TO MARISA BASS AND SELINA BASS WHO ARE ASSUMING CARE OF THIS PATIENT.
[2025-06-29] VITALS (69 sets, daily range): BP systolic 75–169; BP diastolic 43–129
[2025-06-29 03:16] LABS: Hematocrit 27.3 % (37.0-53.0); Hemoglobin 9.7 g/dL (13.5-17.5); Mean Corpuscular HGB Conc 35.5 g/dL (31.5-36.5); Mean Corpuscular Volume 83 fL (80-100); NRBC ABSOLUTE 0.46 K/mm3 (0.00-0.02); NRBC Auto 1.5 /100 WBC (0.0-0.2); Platelet Count 402 K/mm3 (150-400); RDW Coefficient Variation 14.6 % (11.7-14.2); RDW Standard Deviation 43.5 fL (35.1-46.3)
[2025-06-29 03:34] LABS: BAND PERCENT MAN 8 % (0-8); BASOPHILS ABSOLUTE MAN 0.00 K/mm3 (0.00-0.23); BASOPHILS PERCENT MAN 0 % (0-2); EOSINOPHILS ABSOLUTE MAN 0.00 K/mm3 (0.00-0.68); EOSINOPHILS PERCENT MAN 0 % (0-6); LYMPHOCYTES ABSOLUTE MAN 0.30 K/mm3 (0.84-5.20); LYMPHOCYTES PERCENT MAN 1 % (21-46); METAMYELOCYTE ABSOLUTE MAN 1.23 K/mm3 (0.00-0.00); METAMYELOCYTE PERCENT MAN 4 % (0-0); MONOCYTES ABSOLUTE MAN 1.54 K/mm3 (0.16-1.47); MONOCYTES PERCENT MAN 5 % (4-13); MYELOCYTE ABSOLUTE MAN 0.30 K/mm3 (0.00-0.00); MYELOCYTE PERCENT MAN 1 % (0-0); NEUTROPHILS ABSOLUTE MAN 27.42 K/mm3 (1.96-9.15); SEG NEUTROPHILS PERCENT MAN 81 % (41-73)
[2025-06-29] MEDS ORDERED: Clarify Drug Order XX ONE (03:50)
[2025-06-29 04:32] LABS: Magnesium, Blood 2.2 mg/dL (1.6-2.4)
[2025-06-29 04:51] LABS: Albumin, Blood 2.7 g/dL (3.4-5.0); Albumin/Globulin Ratio 0.9 (0.8-1.8); Anion Gap 20.0 mmol/L (3-11); Aspartate Aminotrans (AST/SGOT 4272.0 U/L (12-37); Bilirubin, Direct 0.8 mg/dL (0.0-0.3); Bilirubin, Indirect 0.5 mg/dL (0.1-0.7); Bilirubin, Total 1.3 mg/dL (0.1-1.0); Blood Urea Nitrogen 133.0 mg/dL (8-24); CO2, Blood 17.0 mmol/L (21-32); Calcium, Blood 5.8 mg/dL (8.5-10.1); Chloride, Blood 101.0 mmol/L (98-108); Creatinine, Blood 6.83 mg/dL (0.60-1.20); Globulin, Blood 3.0 g/dL (2.2-4.0); Glucose, Blood 117.0 mg/dL (70-99); Phosphorus, Blood 8.9 mg/dL (2.5-4.9); Potassium, Blood 4.3 mmol/L (3.5-5.5); Sodium, Blood 134.0 mmol/L (136-145); Total Protein, Blood 5.7 g/dL (6.4-8.2)
[2025-06-29] MEDS ORDERED: Calcium Gluconate 10% 1,000 MG in NS 50 ML IV ONE ×2 (05:15→08:25)
[2025-06-29] MEDS ORDERED: Pantoprazole Sodium 40 MG Injection IV SCH ×2 (06:00→18:00)
[2025-06-29] MEDS ORDERED: CALCIUM GLUC IN NACL, ISO-OSM 50 ML IV ONE ×2 (06:10→09:05)
--- NOTE | 2025-06-29 06:37 | NUR ---
SHIFT SUMMARY PT OPENS EYES TO VERBAL STIMULI, TRACKS, BUT DOES NOT ANSWER ANY QUESTIONS. PT WILL FOLLOW SOME COMMANDS. PT ON RA, SPO2 >92%. PT HR IN 60S, MAP >65 WITH LEVO AT 3. ABD FIRM ON PALPITATION. PT HAS +2/+3 EDEMA IN BLE. SCATTERED SCABS/BRUISING T/O PRIOR TO ADMISSION. PT HAS PIV IN LAC AND PICC IN RAR. TRIALYSIS PLACED IN LIJ, WNL. CAT CATH PATENT AND DRAINING TO GRAVITY, MINIMAL OUTPUT T/O SHIFT. CRITICAL LABS IN AM, NOTIFIED PHYSICIAN. BED AT LOWEST POSITION WITH NO NEEDS NOTED AT THIS TIME.
[2025-06-29] MEDS ORDERED: Albumin (Human) 25gm/100ml 100 ML IV SCH ×2 (07:55→15:00)
[2025-06-29 08:13] LABS: pH Blood Venous 7.33 (7.34-7.37)
[2025-06-29] MEDS ORDERED: Calcium Acetate 667 MG Gel Cap PO SCH ×3 (08:30→12:30)
[2025-06-29] MEDS ORDERED: NS 250 ML IV ONE (11:38)
[2025-06-29] MEDS ORDERED: NS 1,000 ML IV ONE (12:09)
[2025-06-29] MEDS ORDERED: Vancomycin (Pharmacy Consult) IV SCH (12:10)
[2025-06-29] MEDS ORDERED: FentaNYL Citrate 50 MCG/ML 2 ML Injection ONE (12:29)
--- NOTE | 2025-06-29 13:24 | NUR ---
FAMILY UPDATE PT'S SISTER ROSELINE UPDATED VIA TELEPHONE. SHE STS SHE WILL TRY TO MAKE ARRANGEMENTS TO COME TO HOSPITAL BUT LIVES IN [place]. SHE PROVIDES PHONE NUMBER FOR SISTER TALIB MICHAELS WHO IS VISITING IN [place] WHO IS GOING TO TRY TO COME TO HOSPITAL. ROSELINE WINTER [phone] TALIB MICHAELS [phone]
[2025-06-29 14:07] LABS: Glucose, Body Fluid 6 mg/dL
[2025-06-29 14:41] LABS: Automated BF RBC Count 0.094 M/mm3 (0-0)
[2025-06-29 14:50] LABS: Automated BF WBC Count >200.000 K/mm3 (0-999); RBC Count, Body Fluid 94000 /mm3 (0-0)
[2025-06-29 15:26] LABS: Hematocrit 21.2 % (37.0-53.0); Hemoglobin 7.6 g/dL (13.5-17.5); Mean Corpuscular HGB Conc 35.8 g/dL (31.5-36.5); Mean Corpuscular Volume 82 fL (80-100); NRBC ABSOLUTE 0.81 K/mm3 (0.00-0.02); NRBC Auto 2.7 /100 WBC (0.0-0.2); Platelet Count 325 K/mm3 (150-400); RDW Coefficient Variation 14.4 % (11.7-14.2); RDW Standard Deviation 42.2 fL (35.1-46.3)
[2025-06-29 15:46] LABS: Lactate Dehydrogenase, Body Fl 7168 U/L
--- NOTE | 2025-06-29 16:00 | NUR ---
UPDATE PROVIDERS NOTIFIED ABOUT CONTINUED SOMNOLENCE AND TRANSITION BACK TO AFIB. ORDERS RECEIVED FOR REPEAT LABS. PLAN TO ADMINISTER 1 UNIT PRBCS, RECHECK CBC 4HRS POST INFUSION, ADMINISTER 2 GRAMS CALCIUM GLUCONATE, AND PLACE DOBHOFF FOR PO MEDS/LACTULOSE.
[2025-06-29 16:16] LABS: CALPROTECTIN,FECAL 12 ug/g (<=49)
[2025-06-29 16:19] LABS: BAND PERCENT MAN 2 % (0-8); BASOPHILS ABSOLUTE MAN 0.00 K/mm3 (0.00-0.23); BASOPHILS PERCENT MAN 0 % (0-2); EOSINOPHILS ABSOLUTE MAN 0.00 K/mm3 (0.00-0.68); EOSINOPHILS PERCENT MAN 0 % (0-6); LYMPHOCYTES ABSOLUTE MAN 1.19 K/mm3 (0.84-5.20); LYMPHOCYTES PERCENT MAN 4 % (21-46); METAMYELOCYTE ABSOLUTE MAN 0.89 K/mm3 (0.00-0.00); METAMYELOCYTE PERCENT MAN 3 % (0-0); MONOCYTES ABSOLUTE MAN 1.49 K/mm3 (0.16-1.47); MONOCYTES PERCENT MAN 5 % (4-13); MYELOCYTE ABSOLUTE MAN 1.79 K/mm3 (0.00-0.00); MYELOCYTE PERCENT MAN 6 % (0-0); NEUTROPHILS ABSOLUTE MAN 24.46 K/mm3 (1.96-9.15); SEG NEUTROPHILS PERCENT MAN 80 % (41-73)
[2025-06-29 16:25] LABS: Neutrophils, Fluid 100.0 % (0.0-25.0); Total Cell Count, Body Fluid 100
[2025-06-29 16:26] LABS: Color, Body Fluid Amber (None-Yellow)
[2025-06-29] MEDS ORDERED: EPINEPHrine HCL 4 MG in NS 250 ML IV SCH (16:40)
[2025-06-29] MEDS ORDERED: NS 500 ML IV SCH (16:55)
--- NOTE | 2025-06-29 17:22 | NUR ---
After responding to a code, I met with the patient's sister, Josefa. We talked about everything from spiritual beleifs to end of life decisions. I also spent time talking with Josefa's spouse, Kenney, who talked about their strong Holiness precious and how God has made the difference in turning his life around and keeping him stable and grounded today. I will continue to remain available.
[2025-06-29 17:34] LABS: Hematocrit 19.0 % (37.0-53.0); Hemoglobin 6.3 g/dL (13.5-17.5); Mean Corpuscular HGB Conc 33.2 g/dL (31.5-36.5); NRBC ABSOLUTE 1.37 K/mm3 (0.00-0.02); NRBC Auto 3.9 /100 WBC (0.0-0.2); Platelet Count 249 K/mm3 (150-400); RDW Coefficient Variation 14.9 % (11.7-14.2); RDW Standard Deviation 48.2 fL (35.1-46.3)
[2025-06-29 17:36] LABS: Mean Corpuscular Volume 89 fL (80-100)
[2025-06-29 17:45] LABS: Magnesium, Blood 2.3 mg/dL (1.6-2.4)
[2025-06-29 17:51] LABS: Albumin, Blood 3.4 g/dL (3.4-5.0); Anion Gap 26 mmol/L (3-11); Blood Urea Nitrogen 101 mg/dL (8-24); CO2, Blood 15 mmol/L (21-32); Calcium, Blood 6.5 mg/dL (8.5-10.1); Chloride, Blood 98 mmol/L (98-108); Creatinine, Blood 5.63 mg/dL (0.60-1.20); Glucose, Blood 133 mg/dL (70-99); Phosphorus, Blood 8.1 mg/dL (2.5-4.9); Potassium, Blood 4.2 mmol/L (3.5-5.5); Sodium, Blood 135 mmol/L (136-145)
[2025-06-29] MEDS ORDERED: Cefepime HCl 2,000 MG in NS 100 ML IV SCH (18:00)
[2025-06-29] MEDS ORDERED: Vasopressin 20 UNITS in NS 100 ML IV PRN (18:00)
[2025-06-29 18:04] LABS: Prothrombin Time Results 61.8 Sec (9.7-11.5)
[2025-06-29 18:08] LABS: BAND PERCENT MAN 8 % (0-8); BASOPHILS ABSOLUTE MAN 0.00 K/mm3 (0.00-0.23); BASOPHILS PERCENT MAN 0 % (0-2); EOSINOPHILS ABSOLUTE MAN 0.00 K/mm3 (0.00-0.68); EOSINOPHILS PERCENT MAN 0 % (0-6); LYMPHOCYTES % ATYPICAL MANUAL 3 % (0-0); LYMPHOCYTES ABSOLUTE MAN 4.16 K/mm3 (0.84-5.20); LYMPHOCYTES PERCENT MAN 9 % (21-46); METAMYELOCYTE ABSOLUTE MAN 1.04 K/mm3 (0.00-0.00); METAMYELOCYTE PERCENT MAN 3 % (0-0); MONOCYTES ABSOLUTE MAN 0.69 K/mm3 (0.16-1.47); MONOCYTES PERCENT MAN 2 % (4-13); MYELOCYTE ABSOLUTE MAN 3.12 K/mm3 (0.00-0.00); MYELOCYTE PERCENT MAN 9 % (0-0); NEUTROPHILS ABSOLUTE MAN 25.67 K/mm3 (1.96-9.15); SEG NEUTROPHILS PERCENT MAN 66 % (41-73)
--- NOTE | 2025-06-29 18:13 | NUR ---
RESPONDED TO CODE BLUE PER RN REQUEST. PT WAS INTUBATED. SISTER HIEN IS AT BEDSIDE. PROVIDED EMOTIONAL, MORAL SUPPORT WHILE PT WAS CARED FOR BY ICU TEAM. EXPLAINED INTUBATION AND WHAT TO EXPECT. DR. PATIÑO CAME AND UPDATED SISTER HIEN. HIEN CALLED OTHER SISTER ROSELINE WINTER [phone] AND GAVE HER UPDATE. DISCUSSED CODE STATUS AND POTENTIAL FOR ANOTHER CARDIAC EVENT THAT MAY REQUIRE CPR. ROSELINE STATED SHE WANTS FULL MEASURES UNLESS MD THINKS "IT'S FUTILE". IF EMERGENT DECISION NEEDS TO BE MADE SHE WILL BE OK WITH WHATEVER HIEN DECIDES. SHE IS MAKING TRAVEL ARRANGEMENTS TO FLY TO [facility]. SHE WILL BE TRAVELLING FROM [facility]. PROVIDED SISTER HIEN WITH LOCAL LIST OF MOTELS THAT ARE PET FRIENDLY PER THEIR REQUEST. CHECKED OPR FOR POLST AND ONE WAS ON FILE WHICH WAS DATED/SIGNED 12/23/24 STATING CPR, FULL MEASURES. UPDATED PRIMARY RN. WILL SEND POLST TO MEDICAL RECORDS AND PLACE COPY ON CHART. ACCORDING TO HIEN, SHE IS UNAWARE OF ANY ADVANCE DIRECTIVE COMPLETED BY PT.
--- NOTE | 2025-06-29 18:46 | NUR ---
CODE BLUE/BLOCK CHARTING THIS RN AT BEDSIDE SETTING UP CALCIUM GLUCONATE INFUSION, PT BEGINS AGONAL BREATHING AND UNRESPONSIVE. MONITOR APPEARS TO BE V-FIB, CODE JAS CALLED AT 1622. SEE CODE BLUE SHEET. PT RECEIVED 2 EMERGENT RELEASE PRBCS. OGT PLACED. R RADIAL ART LINE PLACED BY CONTACT REPRESENTATIVE. PERICARDIAL DRAIN REMAINS IN PLACE WITH 900ML DARK RED OUTPUT. HE IS RECEIVING PROPOFOL 15MCG/KG/MIN, LEVOPHED 10MCG/MIN, EPI 5MCG/MIN, AND VASOPRESSIN. OCTREOTIDE CONTINUES TO INFUSE. PT TAKEN TO CT, PENDING RESULTS.
[2025-06-29 19:26] LABS: pH Blood Arterial 7.05 (7.35-7.45)
--- NOTE | 2025-06-29 19:30 | NUR ---
ASSUMPTION OF CARE RECEIVED REPORT FROM AM NURSE. PT IS INTUBATED AND SEDATED, VENT SETTINGS AC/VC 16/420/5/100% FIO2, SPO2 86-94%. RR IN 30S. PT DOES NOT RESPOND TO VERBAL STIMULI. PROP AT 15. PUPILS REACT, LEFT PUPIL IRREGULAR SHAPE. PT IN AFIB, HR IN 110-120S, MAP >65 WITH LEVO, VASO, AND EPI GTTS. PT HAS ART LINE IN RIGHT RADIAL, WNL. PT HAS PERICARDIAL WINDOW WITH DRAIN, PATENT AND DRAINING TO GRAVITY BLOOD/ RED-TINGED FLUID. PIV IN LAC, PICC IN JESUS, TRIALYSIS IN LIJ, WNL. ABD DISTENDED AND FIRM TO PALPITATION. CAT CATH IN PLACE, PATENT AND DRAINING TO GRAVITY. OG TUBE PLACED AT 65CM. PT EDEMATOUS +1/+2 IN EXTREMITIES. FAMILY NOTED OF PATIENT CONDITION. NO NEEDS NOTED AT THIS TIME.
[2025-06-29] MEDS ORDERED: Cetylpyridinium Chloride 1 EA MISC MT SCH (20:00)
[2025-06-29 20:37] LABS: Hematocrit 24.5 % (37.0-53.0); Hemoglobin 8.4 g/dL (13.5-17.5)
[2025-06-29 20:44] LABS: pH Blood Arterial 7.07 (7.35-7.45)
[2025-06-29 21:07] LABS: Prothrombin Time Results 59.4 Sec (9.7-11.5)
[2025-06-29] MEDS ORDERED: Sodium Bicarb 8.4% Inj 150 MEQ in Dextrose 5% 1,000 ML IV SCH (21:10)
[2025-06-29 23:44] LABS: pH Blood Arterial 7.10 (7.35-7.45)
[2025-06-30] VITALS (23 sets, daily range): BP systolic 83–155; BP diastolic 46–67
[2025-06-30] MEDS ORDERED: Hydrogen Peroxide 1.5 % Solution MT SCH
[2025-06-30 00:54] LABS: pH Blood Arterial 7.09 (7.35-7.45)
[2025-06-30 01:18] LABS: Hematocrit 23.7 % (37.0-53.0); Hemoglobin 8.5 g/dL (13.5-17.5)
[2025-06-30 01:26] LABS: Prothrombin Time Results 61.8 Sec (9.7-11.5)
[2025-06-30] MEDS ORDERED: EPINEPHrine HCL 16 MG in NS 250 ML IV SCH (04:35)
[2025-06-30 05:17] LABS: pH Blood Arterial 7.11 (7.35-7.45)
[2025-06-30 05:28] LABS: Hematocrit 23.1 % (37.0-53.0); Hemoglobin 8.4 g/dL (13.5-17.5); Mean Corpuscular HGB Conc 36.4 g/dL (31.5-36.5); Mean Corpuscular Volume 91 fL (80-100); NRBC ABSOLUTE 1.92 K/mm3 (0.00-0.02); NRBC Auto 4.5 /100 WBC (0.0-0.2); Platelet Count 253 K/mm3 (150-400); RDW Coefficient Variation 15.9 % (11.7-14.2); RDW Standard Deviation 49.9 fL (35.1-46.3)
[2025-06-30 05:44] LABS: Magnesium, Blood 2.5 mg/dL (1.6-2.4)
[2025-06-30 05:49] LABS: Albumin, Blood 3.2 g/dL (3.4-5.0); Anion Gap 32 mmol/L (3-11); Blood Urea Nitrogen 106 mg/dL (8-24); CO2, Blood 10 mmol/L (21-32); Calcium, Blood 6.1 mg/dL (8.5-10.1); Chloride, Blood 98 mmol/L (98-108); Creatinine, Blood 6.14 mg/dL (0.60-1.20); Glucose, Blood 266 mg/dL (70-99); Phosphorus, Blood 10.9 mg/dL (2.5-4.9); Potassium, Blood 5.2 mmol/L (3.5-5.5); Sodium, Blood 135 mmol/L (136-145); Vancomycin, Random 25.1 ug/mL
[2025-06-30] MEDS ORDERED: Sodium Bicarb 8.4% 1 MEQ/ML 50 ML Vial IV ONE (06:00)
--- NOTE | 2025-06-30 06:31 | NUR ---
SHIFT SUMMARY PT INTUBATED AND SEDATED, VENT SETTINGS AC/VC 16/420/10/100% FIO2 WITH SPO2 IN 70-80S T/O SHIFT. OG TUBE IN PLACE. CRITICAL PH T/O SHIFT. PHYSICIAN NOTIFIED AND AWARE. PT NOT FOLLOWING ANY COMMANDS OR MAKING INTENTIONAL MOVEMENTS, DC'D RESTRAINTS. PT IN AFIB, HR IN 90-100S, HAS EPISODES OF BRADYCARDIA WITH HR IN 50S TO 70S. PT HAS ART LINE IN RIGHT RADIAL, WNL. MAP 60-65 WITH LEVO, VASOPRESSIN, AND EPI GTTS. PT HAS PERICARDIAL WINDOW WITH DRAIN, DRAINING BLOOD-TINGED FLUID. SEE CRITICAL FLOWSHEET FOR FURTHER INFORMATION AND GTTS. PT ABD DISTENDED AND MORE FIRM ON RIGHT SIDE. DEPENDENT AND BLE EDEMA WORSENED T/O SHIFT. PT HAS PICC IN JESUS, TRIALYSIS IN LIJ, AND PIV IN LAC. CAT CATH IN PLACE, PATENT AND DRAINING TO GRAVITY WITH 15MLS OUTPUT T/O SHIFT. NO NEEDS NOTED AT THIS TIME.
[2025-06-30 06:57] LABS: Prothrombin Time Results 68.3 Sec (9.7-11.5)
[2025-06-30] MEDS ORDERED: Albumin (Human) 25gm/100ml 100 ML IV SCH (07:50)
[2025-06-30 07:55] LABS: pH Blood Arterial 7.19 (7.35-7.45)
[2025-06-30 08:15] LABS: BAND PERCENT MAN 10 % (0-8); BASOPHILS ABSOLUTE MAN 0.00 K/mm3 (0.00-0.23); BASOPHILS PERCENT MAN 0 % (0-2); EOSINOPHILS ABSOLUTE MAN 0.00 K/mm3 (0.00-0.68); EOSINOPHILS PERCENT MAN 0 % (0-6); LYMPHOCYTES ABSOLUTE MAN 1.28 K/mm3 (0.84-5.20); LYMPHOCYTES PERCENT MAN 3 % (21-46); METAMYELOCYTE ABSOLUTE MAN 2.99 K/mm3 (0.00-0.00); METAMYELOCYTE PERCENT MAN 7 % (0-0); MONOCYTES ABSOLUTE MAN 0.42 K/mm3 (0.16-1.47); MONOCYTES PERCENT MAN 1 % (4-13); MYELOCYTE ABSOLUTE MAN 1.28 K/mm3 (0.00-0.00); MYELOCYTE PERCENT MAN 3 % (0-0); NEUTROPHILS ABSOLUTE MAN 36.77 K/mm3 (1.96-9.15); SEG NEUTROPHILS PERCENT MAN 76 % (41-73)
[2025-06-30 11:07] LABS: pH Blood Arterial 7.43 (7.35-7.45)
[2025-06-30] MEDS ORDERED: Insulin Human Lispro 100 Units/ML 3ML Syringe SC SCH (12:00)
[2025-06-30 12:24] LABS: Prothrombin Time Results >90.0 Sec (9.7-11.5)
[2025-06-30] MEDS ORDERED: Atropine Sulfate 1% Opth Soln 2ML BTL SL PRN (15:00)
[2025-06-30] MEDS ORDERED: Haloperidol Lactate Inj. 5 MG/ML Injection IV PRN (15:00)
[2025-06-30] MEDS ORDERED: Morphine Sulfate 20 MG/1ML 1 ML Oral Syringe SL PRN (15:00)
[2025-06-30] MEDS ORDERED: LORazepam 2 MG/ML 1ML Injection IV PRN (15:00)
[2025-06-30] MEDS ORDERED: Morphine Sulfate 10 MG/ML 1MLSYR IV PRN (15:00)
--- NOTE | 2025-06-30 15:04 | NUR ---
PALLIATIVE CARE CONFERENCE: MET WITH SISTER ROSELINE AND PHARMACY CASHIER TAMIA PRESENT FOR MEETING. ROSELINE MADE DECISION TO LIBERATE REMEDIOS FROM VENTILATOR AFTER VISITING WITH PT, PRAYING FOR HIM AND ASKING FOR A SIGN FROM HIM. ROSELINE MADE DECISION HER BROTHER WOULD NOT WANT TO "LIVE LIKE THIS". CALLED SISTER HIEN TO CONFIRM HER CHOICE TO LIBERATE HER BROTHER FROM VENT AND ALLOW NATURAL EDEATH. TALIB LEFT FOR HOME THIS MORNING. SHE WAS ALSO AGREEABLE TO LIBERATING HER BROTHER FROM VENTILATOR. SHE WOULD APPRECIATE A CALL ONCE HER BROTHER PASSES. CALLED DR. TOPETE AND RECEIVED COMFORT CARE ORDERS. SHE WAS AGREEABLE TO THIS RN PLACING ORDERS. CONFIRMED COMFORT CARE ORDERS WITH DR. RAYGOZA ALSO. NOTIFIED PRIMARY RN. ORDERS PLACED.
[2025-06-30 15:14] LABS: HEPATITIS B SURFACE ANTIBODY 3.78 IU/L
[2025-06-30 15:47] LABS: HBV CORE ANTIBODIES,TOTAL Negative (Negative)
--- NOTE | 2025-06-30 16:40 | NUR ---
FINAL DISCHARGE NOTE: PT WENT TO COMFORT CARE STATUS AND HAD SISTER "ROSELINE" AT BEDSIDE FOR PALLIATIVE EXTUBATION. PT EXTUBATED AT 1535 AND IV MEDS INFUSING WERE TURNED OFF. PT TIME OF 1543 PRONOUNCED BY MYSELF AND ANDREW BASS. ROSELINE TOOK PT BELONGINGS (SEE DETAILS IN FINAL DISCHARGE DETAILS). SPIRITUAL & PALLIATIVE CARE ALSO AT BEDSIDE. ROSELINE CHOSE [facility] AND DONOR TEAM HAS BEEN NOTIFIED.
--- NOTE | 2025-06-30 17:09 | NUR ---
AFTER PT PASSED, ASSISTED SISTER ROSELINE WITH GOING THROUGH PT BELONGINGS. SHE DID NOT WANT TO TAKE ALL OF HIS BELONGINGS. SHE TOOK HIS CLOTHING, CELL PHONE, ALL OTHER ELECTRONIC DEVICES, KEYS, ANIMAL ASSISTANT, WALLET AND SOME CHANGE FOUND IN HIS BELONGINGS. SHE THREW AWAY PT GLASSES AND TRASH, WOUND CARE SUPPLIES. MEDICATIONS WERE DESTROYED. WITNESSED BY LEACH TANK TENDER TIM. SISTER CHOSE [facility]. NOTIFIED SISTER HIEN OF PT PASSING.
--- NOTE | 2025-06-30 17:12 | NUR ---
Spiritual care along with Palliative Care RN Jigna porvided EoL care. The patient sister, Elle and son Jeremie are bedside for the extubation. A prayer is said and encouraging conversation in alignment with Elle's beliefs is provided. The patient expires quickly after the extubation is completed. The family chooses [facility] as their home of choice. We help Sara and Jeremie go through the patient's things to determine what they want to take and what to discard. Grief support is given. Elle voices her appreciation.
[2025-07-02 21:31] LABS: OVA AND PARASITE,FECAL INTERP Negative (Negative)
== END 2025-06-30 15:43 | DRG 871 ==
LOC: ER 09:22 → ICUE 12:20
PROVIDERS: Family Medicine; Internal Medicine; Internal Medicine Critical Care Medicine; Internal Medicine Interventional Cardiology; Internal Medicine Nephrology; Student in an Organized Health Care Education/Training Program; ADMIT Hospitalist
PROC: 3E03329 Introduction of Other Anti-infective into Peripheral Vein, Percutaneous Approach (ICD-10-PCS; principal; 2025-06-23)
PROC: 0T9B70Z Drainage of Bladder with Drainage Device, Via Natural or Artificial Opening (ICD-10-PCS; 2025-06-23)
PROC: 02HV33Z Insertion of Infusion Device into Superior Vena Cava, Percutaneous Approach (ICD-10-PCS; 2025-06-23)
PROC: 3E033XZ Introduction of Vasopressor into Peripheral Vein, Percutaneous Approach (ICD-10-PCS; 2025-06-23)
PROC: 0D9670Z Drainage of Stomach with Drainage Device, Via Natural or Artificial Opening (ICD-10-PCS; 2025-06-23)
PROC: 30233J1 Transfusion of Nonautologous Serum Albumin into Peripheral Vein, Percutaneous Approach (ICD-10-PCS; 2025-06-26)
PROC: 05HN33Z Insertion of Infusion Device into Left Internal Jugular Vein, Percutaneous Approach (ICD-10-PCS; 2025-06-28)
PROC: B544ZZA Ultrasonography of Left Jugular Veins, Guidance (ICD-10-PCS; 2025-06-28)
PROC: 0BH17EZ Insertion of Endotracheal Airway into Trachea, Via Natural or Artificial Opening (ICD-10-PCS; 2025-06-29)
PROC: 5A1D70Z Performance of Urinary Filtration, Intermittent, Less than 6 Hours Per Day (ICD-10-PCS; 2025-06-29)
PROC: 0W9D3ZZ Drainage of Pericardial Cavity, Percutaneous Approach (ICD-10-PCS; 2025-06-29)
PROC: 30233N1 Transfusion of Nonautologous Red Blood Cells into Peripheral Vein, Percutaneous Approach (ICD-10-PCS; 2025-06-29)
PROC: 5A12012 Performance of Cardiac Output, Single, Manual (ICD-10-PCS; 2025-06-29)
PROC: 4A133R1 Monitoring of Arterial Saturation, Peripheral, Percutaneous Approach (ICD-10-PCS; 2025-06-29)
PROC: 5A1935Z Respiratory Ventilation, Less than 24 Consecutive Hours (ICD-10-PCS; 2025-06-29)
PROC: 03HY32Z Insertion of Monitoring Device into Upper Artery, Percutaneous Approach (ICD-10-PCS; 2025-06-29)
PROC: 4A133B1 Monitoring of Arterial Pressure, Peripheral, Percutaneous Approach (ICD-10-PCS; 2025-06-29)
PROC: 4A133J1 Monitoring of Arterial Pulse, Peripheral, Percutaneous Approach (ICD-10-PCS; 2025-06-29)
DX: A41.3 Sepsis due to Hemophilus influenzae (principal); G92.8 Other toxic encephalopathy; J14 Pneumonia due to Hemophilus influenzae; R65.21 Severe sepsis with septic shock; N17.0 Acute kidney failure with tubular necrosis; K72.00 Acute and subacute hepatic failure without coma; I69.354 Hemiplegia and hemiparesis following cerebral infarction affecting left non-dominant side; Z66 Do not resuscitate; Z78.1 Physical restraint status; Z51.5 Encounter for palliative care; Z99.2 Dependence on renal dialysis; E87.1 Hypo-osmolality and hyponatremia; Z59.819 Housing instability, housed unspecified; I30.9 Acute pericarditis, unspecified; E44.1 Mild protein-calorie malnutrition; E87.21 Acute metabolic acidosis; A41.50 Gram-negative sepsis, unspecified; Z68.25 Body mass index [BMI] 25.0-25.9, adult; E78.5 Hyperlipidemia, unspecified; I69.322 Dysarthria following cerebral infarction; N40.0 Benign prostatic hyperplasia without lower urinary tract symptoms; I12.9 Hypertensive chronic kidney disease with stage 1 through stage 4 chronic kidney disease, or unspecified chronic kidney disease; E83.42 Hypomagnesemia; I46.8 Cardiac arrest due to other underlying condition; E11.65 Type 2 diabetes mellitus with hyperglycemia; E11.22 Type 2 diabetes mellitus with diabetic chronic kidney disease; I25.10 Atherosclerotic heart disease of native coronary artery without angina pectoris; D63.1 Anemia in chronic kidney disease; R19.7 Diarrhea, unspecified; E11.51 Type 2 diabetes mellitus with diabetic peripheral angiopathy without gangrene; N18.30 Chronic kidney disease, stage 3 unspecified; E88.09 Other disorders of plasma-protein metabolism, not elsewhere classified; E83.39 Other disorders of phosphorus metabolism; E83.51 Hypocalcemia; I48.0 Paroxysmal atrial fibrillation; K76.82 Hepatic encephalopathy; E87.5 Hyperkalemia; L89.611 Pressure ulcer of right heel, stage 1; Z79.02 Long term (current) use of antithrombotics/antiplatelets; Z79.51 Long term (current) use of inhaled steroids; Z79.82 Long term (current) use of aspirin; Z79.84 Long term (current) use of oral hypoglycemic drugs; Z79.899 Other long term (current) drug therapy; Z89.022 Acquired absence of left finger(s); Z88.0 Allergy status to penicillin; Z88.1 Allergy status to other antibiotic agents
CPT/HCPCS: 31500; 33016; 36415; 36430; 36556; 36569; 36620; 51703; 51798; 71045; 71046; 74174; 76705; 76770; 80048; 80053; 80069; 80202; 81001; 82140; 82248; 82330; 82533; 82550; 82803; 82945; 82947; 83036; 83605; 83615; 83735; 83880; 83993; 84100; 84153; 84154; 84157; 84443; 84484; 85014; 85018; 85025; 85520; 85610; 85651; 85730; 86140; 86704; 86850; 86900; 86901; 86923; 87040; 87070; 87075; 87077; 87177; 87185; 87205; 87209; 87340; 87507; 87517; 87637; 88108; 88305; 89051; 92526; 92610; 93005; 93010; 93306; 93308; 93321; 94002; 94003; 96374; 99152; 99153; 99285-25; A9270; C1729; C1751; C1752; C1769; C1894; J0166; J0282; J0456; J0461; J0612; J0692; J0696; J0881; J1644; J1815; J1885; J2060; J2270; J2354; J2405; J2470; J2704; J2919; J3010; J3373; J3430; J3475; J7030; J7040; J7050; J7070; J7120; P9016; P9047; Q9967